=== PATIENT | female | born 1940 | race Caucasian/White ===

== ENCOUNTER → 2016-11-06 | Outpatient (CLI) | payer MEDICARE, OTHER ==
--- NOTE | 2016-11-06 13:50 | RAD ---
EXAM DESCRIPTION: Hip,Left 2 Views CLINICAL HISTORY: BURSITIS OF HIPS COMPARISON: None. IMPRESSION: 2 views of the left hip show no evidence of acute fracture, focal bone destruction, or joint dislocation. Mild to moderate joint space narrowing is seen with sclerotic changes to the superior lateral acetabulum. Osteophyte of the lateral femoral head to neck junction is seen. These findings are consistent with moderate osteoarthritic changes of the left hip. Sacral stimulator is seen in place. Surgical tacks the pubic symphyseal region likely related to bladder suspension is noted. Electronically signed by: Jakub Rock MD 11/06/2016 1:50 PM CDT
--- NOTE | 2016-11-06 14:17 | RAD ---
EXAM DESCRIPTION: Hip,Right 2 Views CLINICAL HISTORY: BURSITIS OF HIPS COMPARISON: None. IMPRESSION: 2 views of the right hip show no evidence of acute fracture, focal bone destruction, or joint dislocation. Moderate joint space narrowing with sclerotic changes to the superior lateral acetabulum and circumferential osteophyte of the femoral head are seen consistent with moderate to severe osteoarthritic changes of the hip. Postsurgical changes to the pelvis are seen with sacral stimulator noted in place. Sclerotic changes at the pubic symphyseal region are seen. Electronically signed by: Jakub Rock MD 11/06/2016 2:16 PM CDT
== END | disposition home or self-care (01) ==
LOC: RAD 10:16
PROVIDERS: ATTEND Obstetrics & Gynecology
DX: M70.70 Other bursitis of hip, unspecified hip (principal)

== ENCOUNTER → 2016-11-16 | Outpatient (CLI) | payer MEDICARE, OTHER ==
--- NOTE | 2016-11-17 10:33 | RAD ---
Procedure: XR PELVIS 1-2 VIEWS Exam Date: 11/16/2016 8:51 AM CDT Ordering Provider: HI MEDLEY Clinical Indication: PAIN IN LEFT HIP Comparison: None FINDINGS: Neurostimulator noted. There is no fracture or dislocation. Bilateral moderate osteoarthritis of the hip joints. The sacroiliac joints also demonstrate mild degenerative changes. The pubic symphysis is normal. There are no lytic or sclerotic lesions. There are no suspicious calcifications. Impression: 1. Nonacute exam of the pelvis and each hip. 2. 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 Electronically signed by: Honorio Bruno MD 11/17/2016 10:33 AM CDT
== END | disposition home or self-care (01) ==
LOC: RAD 08:47
PROVIDERS: ATTEND Orthopaedic Surgery
DX: M25.551 Pain in right hip (principal); M25.552 Pain in left hip

== ENCOUNTER → 2016-11-30 | Outpatient (CLI) | payer MEDICARE, OTHER ==
--- NOTE | 2016-11-30 10:40 | RAD ---
EXAM DESCRIPTION: MYELOGRAM, LUMBAR SPINE CLINICAL HISTORY: 76 years Female, RADICULOPATHY OF THE LUMBAR REGION COMPARISON: None. FINDINGS: The risks, benefits and alternatives of a fluoroscopic guided lumbar puncture were discussed with the patient including risks of pain, bleeding, infection, nondiagnostic result and post lumbar puncture headache including possible blood patch placement. The patient was given an opportunity to ask questions about the procedure, its risks, benefits and alternatives. She stated she understood these things and wished to proceed. The patient denied any known relevant drug allergies. A timeout was conducted. The patient was placed in the supine position on the fluoroscopy table and a suitable access site posterior to the L4-5 level was identified a marked on the patient's skin surface. The skin was prepped and draped in the usual sterile manner. Approximately 3 cc of 1% lidocaine were used for local anesthesia. Using fluoroscopic guidance, a 22 gauge spinal needle is placed into the thecal sac and return of slightly blood-tinged cerebrospinal fluid was obtained. Approximately 15 mL of iodinated contrast were injected into the thecal sac under real-time fluoroscopic visualization. The spinal needle was withdrawn and an occlusive bandage was applied. The patient tolerated the procedure well, and there were no immediate postprocedure complications. The patient was sent to the CT suite for completion of this exam. IMPRESSION: Uncomplicated fluoroscopic guided lumbar puncture at the L4-5 level performed in conjunction with a CT myelogram of the lumbar spine. Please see separate report from the CT portion of this exam for detailed discussion of findings. Electronically signed by: Jesus Manzanares MD 11/30/2016 10:40 AM CDT
--- NOTE | 2016-11-30 10:54 | CT ---
EXAM DESCRIPTION: Lumbar Spine CLINICAL HISTORY: 76 years Female, RADICULOPATHY OF THE LUMBAR SPINE COMPARISON: None. TECHNIQUE: CT lumbar spine was performed after the intrathecal injection of approximately 13 mL iodinated contrast. FINDINGS: There is no vertebral body fracture or subluxation. The conus is present posterior to the T12-L1 disc, and the cauda equina is unremarkable. A sacral nerve stimulator device is present but only partially visualized. The sacroiliac joint spaces are well-maintained. The paraspinal and visualized retroperitoneal soft tissues are unremarkable. There is a large amount of colonic stool and gas scattered throughout visualized portions of the colon. The gallbladder is surgically absent. Mural calcifications are noted in the abdominal aorta without aneurysm. At L1-2, there is mild right foraminal disc bulging resulting in mild right-sided neuroforaminal stenosis. No facet joint hypertrophy or central canal stenosis. At L2-3, there is advanced disc space narrowing with concentric disc bulging, bilateral facet joint degeneration and ligament flavum thickening resulting in mild central canal and mild/moderate bilateral neuroforaminal stenosis. At L3-4, there is concentric disc bulging with bilateral facet joint degeneration and ligamentum flavum thickening resulting in moderate central canal and moderate bilateral neuroforaminal stenosis. At L4-5, there is concentric disc bulging, slightly worse in the left foraminal position. Bilateral facet joint degeneration and ligament flavum thickening are noted, and findings result in advanced central canal and moderate to moderately advanced bilateral neuroforaminal stenosis, worse on the left side. This probable abutment of the exiting left L4 nerve root. No definite right-sided nerve root abutment. There is a small posterior midline annular tear. A small amount of extrathecal contrast at this level tracks inferiorly along the posterior aspect the L5 body, likely related to a small amount of extrathecal contrast injection. At L5-S1, there is bilateral facet joint degeneration and ligament flavum thickening without disc bulging. Findings result in only mild central canal stenosis. No neuroforaminal stenosis. IMPRESSION: Disc bulging, facet joint degeneration and ligament flavum thickening at multiple levels in the lumbar spine resulting in central canal and neuroforaminal stenosis as detailed above. Findings are worse at L4-5 including possible nerve root abutment at this level. Electronically signed by: Jesus Manzanares MD 11/30/2016 10:54 AM CDT
== END | disposition home or self-care (01) ==
LOC: CT 09:12
PROVIDERS: ATTEND Orthopaedic Surgery
DX: M54.16 Radiculopathy, lumbar region (principal)